=== PATIENT | female | born 1985 | race Caucasian/White ===

== ENCOUNTER 2023-03-26 10:18 | Outpatient (CLI) | payer OTHER ==
[2023-03-26 12:56] LABS: #Basophils 0.1 10x3/uL (0.0-0.2); #Eosinphils 0.1 10x3/uL (0.0-0.5); #Monocytes 0.4 10x3/uL (0.0-1.1); %Eosinophils 1.5 % (0.0-6.0); %Lymphocytes 27.7 % (18.0-47.0); %Monocytes 5.4 % (0.0-10.0); %Neutrophils 64.1 % (40.0-75.0); Hemoglobin 14.3 g/dL (12.0-15.5); Mean Corpuscular HGB CONC 32.5 g/dL (32.0-36.0); Mean Corpuscular Hemoglobin 29.1 pg (27.0-33.0); Mean Corpuscular Volume 89.6 fl (81.6-98.3); Mean Platelet Volume 11.4 fl (7.4-10.4); Platelet Count 388 10x3/uL (150-450); RBC Distribution Width 12.6 % (11.5-14.5); Red Blood Cell (RBC) Count 4.91 10x6/uL (3.90-5.03); White Blood Cell (WBC) Count 7.8 10x3/uL (3.5-10.5)
[2023-03-26 13:43] LABS: ALT (SGPT) 175 U/L (8-55); AST (SGOT) 42 U/L (5-34); Albumin 4.7 g/dL (3.5-5.0); Alkaline Phosphatase 152 U/L (40-110); Anion Gap 15 mmol/L (10-20); BUN (Urea Nitrogen) 12 mg/dL (7.0-18.7); Bilirubin, Direct 0.1 mg/dL (0.1-0.3); Bilirubin, Total 0.3 mg/dL (0.2-1.2); Calc. Creatinine Clearance 0 mL/min (70-130); Calcium 9.7 mg/dL (7.8-10.44); Carbon Dioxide 24 mmol/L (22-29); Chloride 108 mmol/L (98-107); Estimated GFR 100; Globulin 2.9 g/dL (2.4-3.5); Glucose 79 mg/dL (70-105); Potassium 4.6 mmol/L (3.5-5.1); Protein, Total 7.6 g/dL (6.0-8.3); Sodium 142 mmol/L (136-145)
[2023-03-26 14:47] LABS: BHCG - Serum Negative (NEGATIVE); Pregs Control Background? CLEAR/WHITE (CLR/WHITE); Pregs Control Bar Appear? YES (CONTROL BAR)
== END 2023-03-26 10:19 | disposition home or self-care (01) ==
LOC: LABBT 10:18
PROVIDERS: ATTEND Surgery
DX: Z01.812 Encounter for preprocedural laboratory examination (principal); K80.20 Calculus of gallbladder without cholecystitis without obstruction
CPT/HCPCS: 80053; 80076; 84703; 85025

== ENCOUNTER 2023-03-30 06:45 | Day surgery (SDC) | payer OTHER ==
[2023-03-26 11:25] VITALS: BMI 24.1
[2023-03-30] MEDS ORDERED: Dexamethasone 4 mg/ml Vial ONE (10:20)
[2023-03-30] MEDS ORDERED: Ondansetron PF 4 MG/2 ML Vial ONE ×2 (10:20→10:48)
[2023-03-30] MEDS ORDERED: Lidocaine 1% PF 5 ML VIAL ONE (10:20)
[2023-03-30] MEDS ORDERED: Rocuronium Bromide 10 MG/ML (10ML VIAL) ONE ×2 (10:20→10:48)
[2023-03-30] MEDS ORDERED: fentaNYL PF 100 MCG/2 ML SYRINGE ONE (10:21)
[2023-03-30] MEDS ORDERED: SUGAMMADEX SODIUM 200 MG/2 ML VIAL ONE (10:21)
[2023-03-30] MEDS ORDERED: PROPOFOL 40 ML ONE (10:21)
[2023-03-30] MEDS ORDERED: Iopamidol 30 ML ONE (10:25)
[2023-03-30] MEDS ORDERED: Bupivacaine 0.25% HCL 30 ML VIAL ONE (10:25)
[2023-03-30] MEDS ORDERED: EPINEPHrine 1 MG/ML VIAL ONE (10:25)
[2023-03-30] MEDS ORDERED: Sodium Chloride 0.9% 100 ML ONE (10:39)
[2023-03-30] MEDS ORDERED: cefOXitin 2 GM VIAL ONE (10:39)
[2023-03-30] MEDS ORDERED: Dexamethasone 20 MG/5 ML VIAL ONE (10:48)
[2023-03-30] MEDS ORDERED: PROPOFOL 200 MG/20 ML VIAL ONE (10:48)
[2023-03-30] MEDS ORDERED: Ketorolac Tromethamine 30 MG/ML VIAL ONE (10:48)
[2023-03-30] MEDS ORDERED: fentaNYL 50 mcg/mL 1 mL Vial ONE ×3 (11:54→12:15)
[2023-03-30] MEDS ORDERED: HYDROcodone/Acetaminophen 5/325 mg Tablet ONE (13:21)
== END 2023-03-30 14:32 | disposition home or self-care (01) ==
LOC: SDC 06:45
PROVIDERS: ATTEND Surgery
PROC: 0FT44ZZ Resection of Gallbladder, Percutaneous Endoscopic Approach (ICD-10-PCS; principal; 2023-03-30)
PROC: BF13YZZ Fluoroscopy of Gallbladder and Bile Ducts using Other Contrast (ICD-10-PCS; principal; 2023-03-30)
DX: K80.10 Calculus of gallbladder with chronic cholecystitis without obstruction (principal); R74.01 Elevation of levels of liver transaminase levels; F41.9 Anxiety disorder, unspecified; Z79.899 Other long term (current) drug therapy
CPT/HCPCS: 47532; 88304; C1889; J0171; J0694; J1100; J1885; J2405; J2704; J3010; J3490; Q9967; S0020